=== PATIENT | male | born 1965 | race Caucasian/White ===

== ENCOUNTER 2021-07-21 09:30 | Inpatient (IN) ==
[2021-07-21] MEDS ORDERED: Aspirin 325 MG TABLET PO ONE (10:21)
[2021-07-21 10:28] LABS: Basophils % 0.5 %; Eosinophils # 0.2 K/mcL (0.0-0.6); Eosinophils % 2.5 %; Hematocrit 45.3 % (37.5-50.1); Hemoglobin 15.5 g/dL (12.9-16.9); Immature Granulocytes % 0.3 % (0-4); Lymphocytes # 1.4 K/mcL (0.6-4.6); Lymphocytes % 18.4 %; Mean Corpuscular HGB Conc 34.2 g/dL (31.6-35.5); Mean Corpuscular Hemoglobin 30.1 pg (28.0-33.3); Mean Platelet Volume 8.7 fL (9.4-12.4); Monocytes # 0.7 K/mcL (0.0-1.3); Monocytes % 8.5 %; Neutrophils # 5.4 K/mcL (1.6-8.9); Platelet Count 175 K/mcL (140-400); Red Blood Count 5.15 M/mcL (4.19-5.50); Segmented Neutrophils % 69.8 %; White Blood Count 7.7 K/mcL (4.3-11.1)
[2021-07-21] MEDS ORDERED: *HR* HYDROcodone/Acet 5/325 mg TABLET PO ONE ×2 (10:29→19:11)
[2021-07-21] MEDS ORDERED: methocarbamoL 750 MG TABLET PO ONE (10:30)
[2021-07-21 10:51] LABS: BUN/Creatinine Ratio 24 (6-26); Blood Urea Nitrogen 19 mg/dL (6-20); Calcium 8.7 mg/dL (8.6-10.3); Carbon Dioxide 25 mEq/L (23-29); Chloride 107 mEq/L (98-107); Glucose 139 mg/dL (70-105); Osmolality,Calculated 289 (280-300); Potassium 4.1 mEq/L (3.5-5.1); Sodium 137 mEq/L (136-145); Troponin I < 0.03 ng/mL (< 0.04); eGFR For African Americans > 60 (> 60); eGFR For Non-African Americans > 60 (> 60)
[2021-07-21 11:16] LABS: Bacteria,Urine Few per hpf (None-Few); Bilirubin,Urine Negative (Negative); Blood,Urine Negative (Negative); Clarity,Urine Clear (Clear); Color,Urine Light-Yellow (Yellow); Glucose,Urine (UA) 50 mg/dL (Normal); Ketones,Urine Negative (Negative); Leukocyte Esterase,Urine Negative (Negative); Mucus,Urine Few per lpf (None-Few); Nitrite,Urine Negative (Negative); Protein,Urine Negative (Neg-Trace); RBC,Urine 0-3 per hpf (0-3); Specific Gravity,Urine 1.014 (1.010-1.025); Urobilinogen,Urine Normal (Normal); WBC,Urine 0-3 per hpf (0-3)
[2021-07-21] MEDS ORDERED: Naloxone 0.4 MG/ML INJ IVP PRN (16:23)
[2021-07-21] MEDS ORDERED: Acetaminophen 325 MG TABLET PO PRN (16:23)
[2021-07-21] MEDS ORDERED: Ondansetron ODT 4 MG TAB.RAPDIS SL PRN (16:23)
[2021-07-21] MEDS ORDERED: Melatonin 3 MG TABLET PO PRN (16:23)
[2021-07-21] MEDS ORDERED: MOM Conc 10 ML UD.LIQ PO PRN (16:23)
[2021-07-21] MEDS ORDERED: *HR* Dextrose 50 % in Water (Syg) 50 ML SYRINGE IVP PRN (16:40)
[2021-07-21] MEDS ORDERED: D5% in Water 1,000 ML IVC PRN (16:40)
[2021-07-21] MEDS ORDERED: Dextrose 4 GM Chewable Tablets PO PRN ×2 (16:40)
[2021-07-21 17:16] LABS: Estimated Average Glucose 140 mg/dl; Hemoglobin A1C 6.5 %
[2021-07-21] MEDS: Insulin LISPRO 300 UNITS/3 ML VIAL SUBQ SCH (20:53)
[2021-07-22] MEDS: *HR* Enoxaparin 40 MG/0.4 ML SYRINGE SQ SCH (05:54)
[2021-07-22] MEDS ORDERED: Regadenoson 0.4 MG/5 ML SYRINGE IVP ONE (06:44)
[2021-07-22 07:09] LABS: Basophils # 0.1 K/mcL (0.0-0.2); Basophils % 0.7 %; Eosinophils # 0.2 K/mcL (0.0-0.6); Eosinophils % 3.1 %; Hematocrit 46.1 % (37.5-50.1); Hemoglobin 15.8 g/dL (12.9-16.9); Immature Granulocytes % 0.3 % (0-4); Lymphocytes # 1.8 K/mcL (0.6-4.6); Lymphocytes % 25.7 %; Mean Corpuscular HGB Conc 34.3 g/dL (31.6-35.5); Mean Corpuscular Hemoglobin 30.1 pg (28.0-33.3); Mean Corpuscular Volume 87.8 fL (83.0-100.0); Mean Platelet Volume 9.2 fL (9.4-12.4); Monocytes # 0.7 K/mcL (0.0-1.3); Monocytes % 10.2 %; Neutrophils # 4.3 K/mcL (1.6-8.9); Platelet Count 195 K/mcL (140-400); Red Blood Count 5.25 M/mcL (4.19-5.50); Red Cell Distribution Width 12.1 % (11.5-14.5); White Blood Count 7.2 K/mcL (4.3-11.1)
[2021-07-22 07:17] LABS: Prothrombin Time 11.5 Seconds (9.4-12.1)
[2021-07-22 07:18] LABS: BUN/Creatinine Ratio 23 (6-26); Blood Urea Nitrogen 18 mg/dL (6-20); Calcium 8.7 mg/dL (8.6-10.3); Carbon Dioxide 27 mEq/L (23-29); Chloride 106 mEq/L (98-107); Chol/HDL Ratio 4.8 (0-4.9); Cholesterol 160 mg/dL (< 200); Glucose 117 mg/dL (70-105); HDL Cholesterol 33 mg/dL (40-59); LDL Cholesterol,Calculated 106 mg/dL (< 100); Magnesium 1.9 mg/dL (1.6-2.6); Osmolality,Calculated 289 (280-300); Sodium 138 mEq/L (136-145); Triglycerides 103 mg/dL (< 150); eGFR For African Americans > 60 (> 60); eGFR For Non-African Americans > 60 (> 60)
[2021-07-22] MEDS: Insulin LISPRO 300 UNITS/3 ML VIAL SUBQ SCH ×4 (07:57→21:00)
[2021-07-22] MEDS: *HR* HYDROcodone/Acet 5/325 mg TABLET PO PRN ×2 (09:45→21:01)
[2021-07-22] MEDS: Baclofen 10 MG TABLET PO PRN (21:00)
[2021-07-23] MEDS: *HR* Enoxaparin 40 MG/0.4 ML SYRINGE SQ SCH (06:15)
[2021-07-23] MEDS: Insulin LISPRO 300 UNITS/3 ML VIAL SUBQ SCH ×4 (07:42→21:06)
[2021-07-23] MEDS: *HR* HYDROcodone/Acet 5/325 mg TABLET PO PRN ×2 (10:32→19:10)
[2021-07-23] MEDS ORDERED: *HR* FentaNYL (PF) 100 MCG/2 ML VIAL ONE ×2 (12:12→13:05)
[2021-07-23] MEDS ORDERED: *HR* Midazolam HCl 2 MG/2 ML VIAL ONE ×2 (12:12→12:50)
[2021-07-23] MEDS ORDERED: ISOVUE-370 200 ML INFUS..BTL ONE ×2 (12:13→13:25)
[2021-07-23] MEDS ORDERED: *HR* Heparin 10,000 UNIT/10 ML VIAL ONE ×2 (12:13→12:54)
[2021-07-23] MEDS ORDERED: Heparin 1,000 UNITS/500 mL 500 ML ONE (12:13)
[2021-07-23] MEDS ORDERED: Nitroglycerin 1,000 MCG/5 ML VIAL IV ONE (12:13)
[2021-07-23] MEDS ORDERED: 0.9 % Sodium Chloride 2,000 ML ONE (12:13)
[2021-07-23] MEDS ORDERED: *HR* Ticagrelor 90 MG TABLET ONE (13:06)
[2021-07-23] MEDS ORDERED: *HR* Atropine Sulfate 1 MG/10 ML SYRINGE ONE (13:15)
[2021-07-23] MEDS ORDERED: Aspirin Enteric Coated 81 MG Tablet PO SCH (13:45)
[2021-07-23] MEDS: Baclofen 10 MG TABLET PO PRN (14:55)
[2021-07-23] MEDS ORDERED: Perflutren Lipid Microsphere 1.3 ML in 0.9 % Sodium Chloride 8.7 ML IVP PRN (15:26)
[2021-07-23 18:08] LABS: Basophils # 0.1 K/mcL (0.0-0.2); Basophils % 0.6 %; Eosinophils # 0.1 K/mcL (0.0-0.6); Eosinophils % 1.3 %; Hemoglobin 16.7 g/dL (12.9-16.9); Immature Granulocytes % 0.3 % (0-4); Lymphocytes # 1.8 K/mcL (0.6-4.6); Lymphocytes % 18.9 %; Mean Corpuscular HGB Conc 34.8 g/dL (31.6-35.5); Mean Corpuscular Hemoglobin 30.6 pg (28.0-33.3); Mean Corpuscular Volume 87.9 fL (83.0-100.0); Mean Platelet Volume 8.7 fL (9.4-12.4); Monocytes # 0.8 K/mcL (0.0-1.3); Monocytes % 8.6 %; Neutrophils # 6.6 K/mcL (1.6-8.9); Platelet Count 174 K/mcL (140-400); Red Blood Count 5.46 M/mcL (4.19-5.50); Red Cell Distribution Width 12.1 % (11.5-14.5); Segmented Neutrophils % 70.3 %; White Blood Count 9.3 K/mcL (4.3-11.1)
[2021-07-23 18:30] LABS: BUN/Creatinine Ratio 27 (6-26); Blood Urea Nitrogen 22 mg/dL (6-20); Calcium 8.9 mg/dL (8.6-10.3); Carbon Dioxide 23 mEq/L (23-29); Chloride 106 mEq/L (98-107); Cholesterol 181 mg/dL (< 200); Glucose 160 mg/dL (70-105); HDL Cholesterol 36 mg/dL (40-59); LDL Cholesterol,Calculated 112 mg/dL (< 100); Osmolality,Calculated 289 (280-300); Potassium 3.6 mEq/L (3.5-5.1); Sodium 136 mEq/L (136-145); Triglycerides 165 mg/dL (< 150); eGFR For African Americans > 60 (> 60); eGFR For Non-African Americans > 60 (> 60)
[2021-07-23 18:35] LABS: INR 1.2; Prothrombin Time 13.5 Seconds (9.4-12.1)
[2021-07-23 18:38] LABS: Activated Partial Thrombo Time 40.1 Seconds (26.0-36.0)
[2021-07-23] MEDS: *HR* Ticagrelor 90 MG TABLET PO SCH (21:06)
[2021-07-23] MEDS: Chlorhexidine Rinse 15 ML MOUTHWASH MM SCH (21:07)
[2021-07-24] MEDS: *HR* HYDROcodone/Acet 5/325 mg TABLET PO PRN (01:11)
[2021-07-24] MEDS ORDERED: CeFAZolin Syr 2,000MG/20 ML 2,000 MG/20 ML SYRINGE IVPB ONE (06:00)
[2021-07-24] MEDS ORDERED: Aspirin 81 MG TAB.CHEW PO ONE (06:00)
[2021-07-24 06:24] LABS: Hematocrit 46.2 % (37.5-50.1); Hemoglobin 15.8 g/dL (12.9-16.9)
[2021-07-24 06:25] LABS: Basophils # 0.1 K/mcL (0.0-0.2); Basophils % 0.6 %; Eosinophils # 0.1 K/mcL (0.0-0.6); Eosinophils % 1.5 %; Hematocrit 46.1 % (37.5-50.1); Hemoglobin 15.7 g/dL (12.9-16.9); Immature Granulocytes % 0.3 % (0-4); Lymphocytes # 1.7 K/mcL (0.6-4.6); Lymphocytes % 17.5 %; Mean Corpuscular HGB Conc 34.1 g/dL (31.6-35.5); Monocytes # 0.9 K/mcL (0.0-1.3); Monocytes % 8.9 %; Neutrophils # 6.8 K/mcL (1.6-8.9); Platelet Count 185 K/mcL (140-400); Red Blood Count 5.24 M/mcL (4.19-5.50); Segmented Neutrophils % 71.2 %; White Blood Count 9.6 K/mcL (4.3-11.1)
[2021-07-24 06:35] LABS: Alanine Aminotransferase 31 Units/L (7-52); Albumin 3.8 g/dL (3.5-5.7); Albumin/Globulin Ratio 1.5 (1.1-2.2); Alkaline Phosphatase 80 Units/L (34-104); Aspartate Amino Transferase 27 Units/L (13-39); BUN/Creatinine Ratio 33 (6-26); BUN/Creatinine Ratio 34 (6-26); Bilirubin,Total 1.4 mg/dL (0.3-1.0); Blood Urea Nitrogen 25 mg/dL (6-20); Calcium 8.8 mg/dL (8.6-10.3); Carbon Dioxide 23 mEq/L (23-29); Chloride 107 mEq/L (98-107); Globulin 2.5 g/dL (2.4-3.5); Glucose 109 mg/dL (70-105); Osmolality,Calculated 289 (280-300); Potassium 3.8 mEq/L (3.5-5.1); Sodium 137 mEq/L (136-145); Total Protein 6.3 g/dL (6.4-8.9); eGFR For African Americans > 60 (> 60); eGFR For Non-African Americans > 60 (> 60)
[2021-07-24] MEDS: Insulin LISPRO 300 UNITS/3 ML VIAL SUBQ SCH ×4 (07:51→20:34)
[2021-07-24] MEDS: *HR* Ticagrelor 90 MG TABLET PO SCH ×2 (09:00→20:31)
[2021-07-24] MEDS: Chlorhexidine Rinse 15 ML MOUTHWASH MM SCH ×2 (09:35→20:32)
[2021-07-24] MEDS: Morphine Sulfate 2 MG/ML SYRINGE IVP PRN ×3 (10:44→22:59)
[2021-07-24] MEDS: ALPRAZolam 0.25 MG TABLET PO SCH ×2 (11:57→20:31)
[2021-07-24] MEDS ORDERED: Norepinephrine 4 MG in 0.9 % Sodium Chloride 250 ML IVC PRN (12:00)
[2021-07-24] MEDS ORDERED: del Nido Cardioplegia Solution PF ONE ×2 (12:00)
[2021-07-24] MEDS ORDERED: Heparin 15,000 UNIT in 0.9 % Sodium Chloride 500 ML IV ONE (12:00)
[2021-07-24] MEDS ORDERED: Buckersberg's Blood Cardioplegia PF ONE (12:00)
[2021-07-25] MEDS ORDERED: NiCARdipine 2.5 MG/10 ML Syringe IVPB ONE (05:18)
[2021-07-25] MEDS ORDERED: DOBUTamine 1,000 MG/250 ML BAG ONE (05:18)
[2021-07-25] MEDS ORDERED: *HR* FentaNYL (PF) 250 MCG/5 ML VIAL ONE (05:20)
[2021-07-25] MEDS ORDERED: *HR* Midazolam HCl 5 MG/5 ML VIAL IVP ONE (05:20)
[2021-07-25] MEDS ORDERED: *HR* Rocuronium Bromide 50 MG/5 ML VIAL ONE ×3 (05:21→11:06)
[2021-07-25] MEDS ORDERED: *HR* Norepinephrine 4 MG/4 ML VIAL IVC ONE (05:21)
[2021-07-25] MEDS ORDERED: niCARdipine 20 MG/200 ML MLS IVC ONE (05:21)
[2021-07-25] MEDS ORDERED: *HR* Etomidate 20 MG/10 ML AMPUL IVP ONE (05:22)
[2021-07-25] MEDS ORDERED: Papaverine 60 MG/2 ML VIAL IVP ONE (05:22)
[2021-07-25] MEDS ORDERED: Calcium Gluconate 1,000 MG/10 ML VIAL ONE (05:22)
[2021-07-25] MEDS ORDERED: Protamine Sulfate 250 MG/25 ML VIAL IVP ONE (05:25)
[2021-07-25] MEDS ORDERED: *HR* Phenylephrine 10 MG/ML VIAL ONE (05:41)
[2021-07-25] MEDS ORDERED: CeFAZolin Syr 2,000MG/20 ML 2,000 MG/20 ML SYRINGE IVPB ONE (06:00)
[2021-07-25] MEDS ORDERED: Aspirin 81 MG TAB.CHEW PO ONE (06:00)
[2021-07-25] MEDS ORDERED: Vancomycin 1,250 MG/262.5 ML IV.SOLN IVPB ONE (06:00)
[2021-07-25] MEDS ORDERED: Buckersberg's Blood Cardioplegia PF ONE (06:30)
[2021-07-25] MEDS ORDERED: del Nido Cardioplegia Solution PF ONE ×2 (06:30)
[2021-07-25] MEDS ORDERED: Norepinephrine 4 MG in 0.9 % Sodium Chloride 250 ML IVC PRN (06:30)
[2021-07-25] MEDS ORDERED: Heparin 15,000 UNIT in 0.9 % Sodium Chloride 500 ML IV ONE (06:30)
[2021-07-25 06:36] LABS: ABG Base Excess -1 mEq/L (-2 to 3); ABG Chloride 106 mEq/L (98-107); ABG Glucose 120 mg/dL (60-95); ABG HCO3 26 mEq/L (21-27); ABG Oxygen Saturation 100 % (95-98); ABG PCO2 52 mmHg (35-45); ABG PH 7.31 pH Units (7.32-7.45); ABG PO2 391 mmHg (85-104); ABG TCO2 28 mEq/L (20-26)
[2021-07-25] MEDS ORDERED: Ondansetron 4 MG/2 ML VIAL ONE (07:30)
[2021-07-25 08:32] LABS: ABG Base Excess -5 mEq/L (-2 to 3); ABG Chloride 107 mEq/L (98-107); ABG Glucose 212 mg/dL (60-95); ABG HCO3 22 mEq/L (21-27); ABG Ionized Calcium 1.18 mmol/L (1.15-1.35); ABG Oxygen Saturation 94 % (95-98); ABG PCO2 47 mmHg (35-45); ABG PH 7.29 pH Units (7.32-7.45); ABG PO2 78 mmHg (85-104); ABG TCO2 24 mEq/L (20-26)
[2021-07-25] MEDS ORDERED: Calcium Gluconate 1gm/50mL 1 GM/50 ML BAG IVPB PRN (09:14)
[2021-07-25] MEDS ORDERED: Potassium Chloride 40 MEQ/200 ML BAG IVPB PRN (09:14)
[2021-07-25] MEDS ORDERED: *HR* Dextrose 50 % in Water (Syg) 50 ML SYRINGE IVP PRN (09:14)
[2021-07-25] MEDS ORDERED: *HR* OxyCODONE/APAP 5/325 TABLET PO PRN ×3 (09:14→14:54)
[2021-07-25] MEDS ORDERED: Insulin Regular, Human 100 UNIT/ML IV PRN (09:14)
[2021-07-25] MEDS ORDERED: Ondansetron 4 MG/2 ML VIAL IVP PRN (09:14)
[2021-07-25] MEDS ORDERED: Sugammadex Sodium 200 MG/2 ML VIAL IV ONE (09:32)
[2021-07-25 09:49] LABS: ABG Base Excess -4 mEq/L (-2 to 3); ABG Chloride 106 mEq/L (98-107); ABG Glucose 197 mg/dL (60-95); ABG HCO3 21 mEq/L (21-27); ABG Ionized Calcium 1.37 mmol/L (1.15-1.35); ABG Oxygen Saturation 96 % (95-98); ABG PCO2 37 mmHg (35-45); ABG PH 7.36 pH Units (7.32-7.45); ABG PO2 83 mmHg (85-104); ABG TCO2 22 mEq/L (20-26)
[2021-07-25] MEDS ORDERED: Albumin Human 5% 12.5 GM/250 ML IV.SOLN ONE (10:51)
[2021-07-25 11:04] LABS: INR 1.3
[2021-07-25 11:07] LABS: ABG Base Excess -4 mEq/L (-2 to 3); ABG Chloride 107 mEq/L (98-107); ABG Glucose 183 mg/dL (60-95); ABG HCO3 21 mEq/L (21-27); ABG Ionized Calcium 1.13 mmol/L (1.15-1.35); ABG Oxygen Saturation 99 % (95-98); ABG PCO2 38 mmHg (35-45); ABG PH 7.36 pH Units (7.32-7.45); ABG PO2 144 mmHg (85-104); ABG TCO2 23 mEq/L (20-26)
[2021-07-25 11:07] LABS: Activated Partial Thrombo Time 28.1 Seconds (26.0-36.0)
[2021-07-25] MEDS ORDERED: HUM PROTHROMBIN CPLX IVPB ONE (11:07)
[2021-07-25] MEDS ORDERED: WATER FOR INJ IVPB ONE (11:07)
[2021-07-25] MEDS ORDERED: [UNRECOGNIZED DRUG - OTHER] IVPB ONE (11:07)
[2021-07-25] MEDS ORDERED: ceFAZolin 2,000 MG in 0.9 % Sodium Chloride 100 ML IVPB ONE (11:23)
[2021-07-25] MEDS ORDERED: Ketorolac 30 MG/ML VIAL ONE (11:51)
[2021-07-25] MEDS ORDERED: *HR* HYDROMORPHONE 2 MG/ML VIAL ONE (11:52)
[2021-07-25] MEDS: niCARdipine 20 MG/200 ML MLS IVC SCH ×4 (12:00→20:25)
[2021-07-25 12:14] LABS: ABG Base Excess -4 mEq/L (-2 to 3); ABG HCO3 22 mEq/L (21-27); ABG Oxygen Saturation 98 % (95-98); ABG PCO2 42 mmHg (35-45); ABG PH 7.32 pH Units (7.32-7.45); ABG PO2 111 mmHg (85-104); ABG TCO2 23 mEq/L (20-26)
[2021-07-25] MEDS: *HR* Ticagrelor 90 MG TABLET PO SCH (12:25)
[2021-07-25 12:26] LABS: Basophils % 0.2 %; Eosinophils % 0.1 %; Hemoglobin 13.5 g/dL (12.9-16.9); Immature Granulocytes % 0.7 % (0-4); Lymphocytes # 0.7 K/mcL (0.6-4.6); Lymphocytes % 3.3 %; Mean Corpuscular HGB Conc 34.6 g/dL (31.6-35.5); Mean Corpuscular Hemoglobin 30.7 pg (28.0-33.3); Mean Corpuscular Volume 88.6 fL (83.0-100.0); Mean Platelet Volume 8.9 fL (9.4-12.4); Monocytes # 1.8 K/mcL (0.0-1.3); Monocytes % 8.2 %; Neutrophils # 19.1 K/mcL (1.6-8.9); Platelet Count 184 K/mcL (140-400); Segmented Neutrophils % 87.5 %
[2021-07-25 12:28] LABS: White Blood Count 21.8 K/mcL (4.3-11.1)
[2021-07-25] MEDS: *HR* FentaNYL (PF) 100 MCG/2 ML VIAL IVP PRN ×5 (12:31→22:13)
[2021-07-25] MEDS: Albumin Human 5% 12.5 GM/250 ML IV.SOLN IVPB PRN ×6 (12:40→17:21)
[2021-07-25 12:42] LABS: BUN/Creatinine Ratio 30 (6-26); Blood Urea Nitrogen 28 mg/dL (6-20); Calcium 8.9 mg/dL (8.6-10.3); Carbon Dioxide 23 mEq/L (23-29); Chloride 107 mEq/L (98-107); Glucose 212 mg/dL (70-105); Magnesium 1.3 mg/dL (1.6-2.6); Osmolality,Calculated 298 (280-300); Potassium 3.8 mEq/L (3.5-5.1); Sodium 138 mEq/L (136-145); eGFR For African Americans > 60 (> 60); eGFR For Non-African Americans > 60 (> 60)
[2021-07-25] MEDS: Gabapentin 300 MG CAPSULE PO SCH ×3 (12:52→20:25)
[2021-07-25] MEDS ORDERED: Aspirin Enteric Coated 81 MG Tablet PO ONE (13:00)
[2021-07-25] MEDS: *HR* OxyCODONE/APAP 5/325 TABLET PO PRN ×2 (15:29→20:24)
[2021-07-25] MEDS: CeFAZolin 2 GM/120 ML BAG IVPB SCH (16:35)
[2021-07-25] MEDS: Pantoprazole 40 MG VIAL IVP SCH (17:18)
[2021-07-25] MEDS: DOBUTamine 1,000 MG/250 ML BAG IVC SCH (19:42)
[2021-07-25] MEDS: Norepinephrine 4 MG/254 ML IV.SOLN IVC SCH (19:43)
[2021-07-25] MEDS: Baclofen 10 MG TABLET PO PRN (20:24)
[2021-07-25] MEDS: Chlorhexidine Rinse 15 ML MOUTHWASH MM SCH (20:24)
[2021-07-26] MEDS: niCARdipine 20 MG/200 ML MLS IVC SCH ×3 (00:15→08:08)
[2021-07-26] MEDS: CeFAZolin 2 GM/120 ML BAG IVPB SCH ×3 (00:15→15:18)
[2021-07-26] MEDS: Norepinephrine 4 MG/254 ML IV.SOLN IVC SCH (00:15)
[2021-07-26] MEDS: *HR* OxyCODONE/APAP 5/325 TABLET PO PRN ×6 (00:26→20:33)
[2021-07-26] MEDS: *HR* FentaNYL (PF) 100 MCG/2 ML VIAL IVP PRN ×2 (01:17→03:36)
[2021-07-26 03:39] LABS: Basophils % 0.1 %; Hematocrit 34.2 % (37.5-50.1); Hemoglobin 11.9 g/dL (12.9-16.9); Immature Granulocytes % 0.3 % (0-4); Lymphocytes # 0.8 K/mcL (0.6-4.6); Lymphocytes % 8.6 %; Mean Corpuscular HGB Conc 34.8 g/dL (31.6-35.5); Mean Corpuscular Hemoglobin 30.4 pg (28.0-33.3); Mean Corpuscular Volume 87.2 fL (83.0-100.0); Monocytes % 10.9 %; Neutrophils # 7.6 K/mcL (1.6-8.9); Platelet Count 132 K/mcL (140-400); Red Blood Count 3.92 M/mcL (4.19-5.50); Red Cell Distribution Width 12.1 % (11.5-14.5); Segmented Neutrophils % 80.1 %; White Blood Count 9.5 K/mcL (4.3-11.1)
[2021-07-26 03:45] LABS: INR 1.3; Prothrombin Time 14.6 Seconds (9.4-12.1)
[2021-07-26 03:47] LABS: Activated Partial Thrombo Time 27.6 Seconds (26.0-36.0)
[2021-07-26 04:00] LABS: BUN/Creatinine Ratio 28 (6-26); Blood Urea Nitrogen 19 mg/dL (6-20); Calcium 8.4 mg/dL (8.6-10.3); Carbon Dioxide 25 mEq/L (23-29); Chloride 104 mEq/L (98-107); Glucose 148 mg/dL (70-105); Magnesium 1.6 mg/dL (1.6-2.6); Osmolality,Calculated 287 (280-300); Potassium 3.8 mEq/L (3.5-5.1); Sodium 136 mEq/L (136-145); eGFR For African Americans > 60 (> 60); eGFR For Non-African Americans > 60 (> 60)
[2021-07-26] MEDS: Baclofen 10 MG TABLET PO PRN ×2 (04:38→20:34)
[2021-07-26] MEDS: Chlorhexidine Rinse 15 ML MOUTHWASH MM SCH ×3 (05:58→20:33)
[2021-07-26] MEDS: Insulin LISPRO 300 UNITS/3 ML VIAL SUBQ SCH ×3 (06:00→20:35)
[2021-07-26] MEDS: Gabapentin 300 MG CAPSULE PO SCH ×3 (07:52→20:34)
[2021-07-26] MEDS: Pantoprazole 40 MG VIAL IVP SCH (07:52)
[2021-07-26] MEDS: DOBUTamine 1,000 MG/250 ML BAG IVC SCH (08:08)
[2021-07-26] MEDS ORDERED: *HR* Ticagrelor 90 MG TABLET PO SCH (09:00)
[2021-07-26] MEDS ORDERED: Aspirin 81 MG TAB.CHEW PO SCH (09:00)
[2021-07-26] MEDS ORDERED: Dextrose 4 GM Chewable Tablets PO PRN ×4 (10:17→11:47)
[2021-07-26] MEDS ORDERED: D5% in Water 1,000 ML IVC PRN (10:17)
[2021-07-26] MEDS ORDERED: *HR* Dextrose 50 % in Water (Syg) 50 ML SYRINGE IVP PRN ×2 (10:17→11:47)
[2021-07-26] MEDS ORDERED: Insulin LISPRO 300 UNITS/3 ML VIAL SUBQ SCH ×2 (11:30→21:00)
[2021-07-26] MEDS ORDERED: Melatonin 3 MG TABLET PO PRN (11:47)
[2021-07-26] MEDS ORDERED: Ondansetron 4 MG/2 ML VIAL IVP PRN (11:47)
[2021-07-26] MEDS ORDERED: Ondansetron ODT 4 MG TAB.RAPDIS SL PRN (11:47)
[2021-07-26] MEDS ORDERED: Naloxone 0.4 MG/ML INJ IVP PRN (11:47)
[2021-07-26] MEDS ORDERED: Acetaminophen 325 MG TABLET PO PRN (11:47)
[2021-07-26] MEDS ORDERED: Potassium Chloride 40 MEQ/200 ML BAG IVPB PRN (11:47)
[2021-07-26] MEDS ORDERED: *HR* HYDROcodone/Acet 5/325 mg TABLET PO PRN (11:47)
[2021-07-26] MEDS ORDERED: MOM Conc 10 ML UD.LIQ PO PRN (11:47)
[2021-07-26] MEDS ORDERED: Calcium Gluconate 1gm/50mL 1 GM/50 ML BAG IVPB PRN (11:47)
[2021-07-27] MEDS: *HR* OxyCODONE/APAP 5/325 TABLET PO PRN ×3 (00:38→19:54)
[2021-07-27] MEDS: CeFAZolin 2 GM/120 ML BAG IVPB SCH ×2 (01:01→08:41)
[2021-07-27 01:11] LABS: Basophils % 0.4 %; Eosinophils % 0.3 %; Hematocrit 33.6 % (37.5-50.1); Hemoglobin 11.2 g/dL (12.9-16.9); Immature Granulocytes % 0.6 % (0-4); Lymphocytes # 1.3 K/mcL (0.6-4.6); Lymphocytes % 13.1 %; Mean Corpuscular HGB Conc 33.3 g/dL (31.6-35.5); Mean Corpuscular Hemoglobin 29.8 pg (28.0-33.3); Mean Corpuscular Volume 89.4 fL (83.0-100.0); Mean Platelet Volume 9.6 fL (9.4-12.4); Monocytes # 1.1 K/mcL (0.0-1.3); Monocytes % 10.9 %; Neutrophils # 7.6 K/mcL (1.6-8.9); Platelet Count 158 K/mcL (140-400); Red Blood Count 3.76 M/mcL (4.19-5.50); Red Cell Distribution Width 12.1 % (11.5-14.5); Segmented Neutrophils % 74.7 %; White Blood Count 10.2 K/mcL (4.3-11.1)
[2021-07-27 01:36] LABS: BUN/Creatinine Ratio 29 (6-26); Blood Urea Nitrogen 19 mg/dL (6-20); Calcium 8.2 mg/dL (8.6-10.3); Carbon Dioxide 26 mEq/L (23-29); Chloride 104 mEq/L (98-107); Glucose 155 mg/dL (70-105); Osmolality,Calculated 287 (280-300); Potassium 3.7 mEq/L (3.5-5.1); Sodium 136 mEq/L (136-145); eGFR For African Americans > 60 (> 60); eGFR For Non-African Americans > 60 (> 60)
[2021-07-27] MEDS: Aspirin 81 MG TAB.CHEW PO SCH (08:41)
[2021-07-27] MEDS: Metoprolol XL (24 HR) Succ 25 MG TAB.ER.24H PO SCH (08:41)
[2021-07-27] MEDS: Gabapentin 300 MG CAPSULE PO SCH ×3 (08:41→19:54)
[2021-07-27] MEDS: Pantoprazole 40 MG VIAL IVP SCH (08:42)
[2021-07-27] MEDS: Chlorhexidine Rinse 15 ML MOUTHWASH MM SCH ×2 (08:42→19:54)
[2021-07-27] MEDS: Insulin LISPRO 300 UNITS/3 ML VIAL SUBQ SCH ×4 (08:43→19:54)
[2021-07-27] MEDS ORDERED: Furosemide 20 MG/2 ML VIAL IVP ONE (09:15)
[2021-07-27] MEDS: Baclofen 10 MG TABLET PO PRN (16:59)
[2021-07-28] MEDS: *HR* OxyCODONE/APAP 5/325 TABLET PO PRN ×5 (00:24→21:51)
[2021-07-28 06:17] LABS: BUN/Creatinine Ratio 28 (6-26); Basophils # 0.1 K/mcL (0.0-0.2); Basophils % 0.6 %; Blood Urea Nitrogen 18 mg/dL (6-20); Calcium 8.1 mg/dL (8.6-10.3); Carbon Dioxide 27 mEq/L (23-29); Chloride 104 mEq/L (98-107); Eosinophils # 0.1 K/mcL (0.0-0.6); Eosinophils % 1.1 %; Glucose 160 mg/dL (70-105); Hematocrit 30.8 % (37.5-50.1); Hemoglobin 10.7 g/dL (12.9-16.9); Immature Granulocytes % 0.5 % (0-4); Lymphocytes # 1.7 K/mcL (0.6-4.6); Lymphocytes % 17.3 %; Magnesium 1.8 mg/dL (1.6-2.6); Mean Corpuscular HGB Conc 34.7 g/dL (31.6-35.5); Mean Corpuscular Hemoglobin 30.6 pg (28.0-33.3); Mean Platelet Volume 9.4 fL (9.4-12.4); Monocytes # 0.9 K/mcL (0.0-1.3); Monocytes % 9.3 %; Neutrophils # 6.9 K/mcL (1.6-8.9); Osmolality,Calculated 287 (280-300); Platelet Count 157 K/mcL (140-400); Potassium 3.9 mEq/L (3.5-5.1); Segmented Neutrophils % 71.2 %; Sodium 136 mEq/L (136-145); White Blood Count 9.7 K/mcL (4.3-11.1); eGFR For African Americans > 60 (> 60); eGFR For Non-African Americans > 60 (> 60)
[2021-07-28] MEDS: Pantoprazole 40 MG VIAL IVP SCH (08:45)
[2021-07-28] MEDS: Chlorhexidine Rinse 15 ML MOUTHWASH MM SCH ×2 (08:45→21:50)
[2021-07-28] MEDS: Aspirin 81 MG TAB.CHEW PO SCH (08:45)
[2021-07-28] MEDS: Metoprolol XL (24 HR) Succ 25 MG TAB.ER.24H PO SCH (08:46)
[2021-07-28] MEDS: Gabapentin 300 MG CAPSULE PO SCH ×3 (08:46→21:51)
[2021-07-28] MEDS: Insulin LISPRO 300 UNITS/3 ML VIAL SUBQ SCH ×4 (08:47→21:52)
[2021-07-29] MEDS: *HR* OxyCODONE/APAP 5/325 TABLET PO PRN ×3 (03:03→12:33)
[2021-07-29 04:03] LABS: Basophils # 0.1 K/mcL (0.0-0.2); Basophils % 0.8 %; Eosinophils # 0.3 K/mcL (0.0-0.6); Eosinophils % 3.4 %; Hematocrit 32.7 % (37.5-50.1); Hemoglobin 11.3 g/dL (12.9-16.9); Immature Granulocytes % 1.1 % (0-4); Lymphocytes % 22.5 %; Mean Corpuscular HGB Conc 34.6 g/dL (31.6-35.5); Mean Corpuscular Hemoglobin 30.5 pg (28.0-33.3); Mean Corpuscular Volume 88.1 fL (83.0-100.0); Mean Platelet Volume 9.2 fL (9.4-12.4); Monocytes # 0.9 K/mcL (0.0-1.3); Monocytes % 9.6 %; Neutrophils # 5.7 K/mcL (1.6-8.9); Platelet Count 205 K/mcL (140-400); Red Blood Count 3.71 M/mcL (4.19-5.50); Segmented Neutrophils % 62.6 %; White Blood Count 9.1 K/mcL (4.3-11.1)
[2021-07-29 04:23] LABS: BUN/Creatinine Ratio 29 (6-26); Blood Urea Nitrogen 20 mg/dL (6-20); Calcium 8.1 mg/dL (8.6-10.3); Carbon Dioxide 26 mEq/L (23-29); Chloride 106 mEq/L (98-107); Glucose 126 mg/dL (70-105); Magnesium 1.9 mg/dL (1.6-2.6); Osmolality,Calculated 290 (280-300); Potassium 3.9 mEq/L (3.5-5.1); Sodium 138 mEq/L (136-145); eGFR For African Americans > 60 (> 60); eGFR For Non-African Americans > 60 (> 60)
[2021-07-29] MEDS: Chlorhexidine Rinse 15 ML MOUTHWASH MM SCH (07:58)
[2021-07-29] MEDS: Aspirin 81 MG TAB.CHEW PO SCH (07:59)
[2021-07-29] MEDS: Metoprolol XL (24 HR) Succ 25 MG TAB.ER.24H PO SCH (07:59)
[2021-07-29] MEDS: Pantoprazole 40 MG VIAL IVP SCH (08:00)
[2021-07-29] MEDS ORDERED: Furosemide 40 MG/4 ML VIAL IVP SCH (08:00)
[2021-07-29] MEDS: Gabapentin 300 MG CAPSULE PO SCH (08:00)
[2021-07-29] MEDS: Insulin LISPRO 300 UNITS/3 ML VIAL SUBQ SCH ×2 (08:01→12:34)
[2021-07-29 11:23] VITALS: BP 127/74; PULSE 77; TEMP 98.2; O2SAT 98
[2021-07-30] MEDS ORDERED: Metoprolol XL (24 HR) Succ 25 MG TAB.ER.24H PO SCH (09:00)
== END 2021-07-29 14:14 | disposition home or self-care (01) | DRG 166 ==
LOC: 3BNU 09:30 → EMEROOARM 09:30 → SUATTDRO 13:42 → 3BNU 13:52 → ICNU 07-23 18:13 → SUATTDRO 07-24 14:10 → 2NNU 07-26 19:23
PROVIDERS: ADMIT Internal Medicine; ATTEND Internal Medicine